=== PATIENT | female | born 1975 | race American Indian/Alaskan Native ===

== ENCOUNTER → 2023-11-10 18:31 | Outpatient (REF) | payer BC, SELFPAY | LOC: WDC 18:31 | PROVIDERS: ATTENDING PHYSICIAN Internal Medicine Gastroenterology | DX: Z12.31 Encounter for screening mammogram for malignant neoplasm of breast (principal) | CPT/HCPCS: 77063; 77067 ==

== ENCOUNTER → 2024-06-09 09:00 | Outpatient (REF) | payer BC, SELFPAY ==
[2024-06-09 13:28] LABS: % Basophils 0.5 % (0-2); % Eosinophils 0.6 % (0-6); % Immature Granulocytes 1.1 % (0-0.5); % Lymphocytes 34.7 % (20.5-51.1); % Monocytes 6.8 % (1.7-9.3); % Neutrophils 56.3 % (42.2-75.2); Absolute Immature Granulocytes 0.1 10^3/uL (0-0.05); Absolute Lymphocytes 2.3 10^3/uL (1.2-3.4); Absolute Monocytes 0.5 10^3/uL (0.1-0.6); Absolute Neutrophils 3.7 10^3/uL (1.4-6.5); Hematocrit 37.9 % (37.0-47.0); Hemoglobin 12.8 g/dL (12.0-16.0); Mean Corp Hgb Conc. 33.8 g/dL (33.0-37.0); Mean Corpuscular Hgb 29.2 pg (27.0-31.0); Mean Corpuscular Volume 86.3 fL (81.0-99.0); Mean Platelet Volume 11.1 fL (7.4-10.4); Nucleated Red Blood Cells % 0 %; Platelet Count 223 10^3/uL (130-400); Red Blood Cell Count 4.39 10^6/uL (4.20-5.40); Red Cell Dist. Width 13.7 % (11.5-14.5); White Blood Cell Count 6.6 10^3/uL (4.8-10.8)
[2024-06-09 14:15] LABS: Glycohemoglobin (HgbA1c) 5.3 % (4.0-5.6)
[2024-06-09 14:59] LABS: ALT (SGPT) 14 U/L (0-35); AST (SGOT) 21 U/L (14-36); Albumin 4.5 g/dl (3.5-5.0); Alkaline Phosphatase 52 U/L (38-126); Blood Urea Nitrogen 8 mg/dl (7-17); Calcium 9.3 mg/dl (8.4-10.2); Carbon Dioxide 27 mmol/L (22-30); Chloride 101 mmol/L (98-107); Glucose 84 mg/dl (70-99); HDL Cholesterol 78 mg/dl; LDL Cholesterol, Calculated 128 mg/dl; Potassium 4.3 mmol/L (3.5-5.1); Sodium 141 mmol/L (135-145); Total Bilirubin 1.7 mg/dl (0.2-1.3); Total Cholesterol 224 mg/dl (50-199); Total Protein 7.3 g/dl (6.3-8.2); Triglyceride 92 mg/dl (10-149); Very Low Density Lipoprotein 18 mg/dl (0-30); eGFR > 60.00
[2024-06-09 15:15] LABS: TSH Reflex To Free T4 2.02 uIU/ml (0.47-4.68)
[2024-06-09 15:34] LABS: Vitamin B12 192 pg/ml (239-931)
[2024-06-12 02:03] LABS: Vitamin D 1,25 Dihydroxy 84.5 pg/mL (19.9-79.3)
== END ==
LOC: REG 09:00
PROVIDERS: ATTENDING PHYSICIAN Internal Medicine Gastroenterology
DX: Z00.00 Encounter for general adult medical examination without abnormal findings (principal)
CPT/HCPCS: 36415; 80053; 80061; 82607; 82652; 83036; 84443; 85025

== ENCOUNTER → 2024-12-27 13:47 | Outpatient (REF) | payer BC, SELFPAY | LOC: WDC 13:47 | PROVIDERS: ATTENDING PHYSICIAN Internal Medicine Gastroenterology; FAMILY PHYSICIAN Internal Medicine | DX: Z12.31 Encounter for screening mammogram for malignant neoplasm of breast (principal) | CPT/HCPCS: 77063; 77067 ==

== ENCOUNTER → 2025-07-11 18:05 | Outpatient (REF) | payer BC, SELFPAY | LOC: CPAP 18:05 | PROVIDERS: ATTENDING PHYSICIAN Obstetrics & Gynecology | DX: Z01.419 Encounter for gynecological examination (general) (routine) without abnormal findings (principal); Z11.51 Encounter for screening for human papillomavirus (HPV) | CPT/HCPCS: 87624; G0123 ==